=== PATIENT | male | born 1955 | race Caucasian/White ===

== ENCOUNTER → 2024-12-27 06:56 | Outpatient (REF) | payer OTHER, SELFPAY | LOC: RAD 06:56 | PROVIDERS: ATTENDING PHYSICIAN Surgery; FAMILY PHYSICIAN Internal Medicine | DX: K40.91 Unilateral inguinal hernia, without obstruction or gangrene, recurrent (principal) | CPT/HCPCS: 74177; Q9967 ==

== ENCOUNTER 2025-01-05 06:16 | Day surgery (SDC) | payer OTHER, SELFPAY ==
[2025-01-05] VITALS (7 sets, daily range): BP systolic 118–138; BP diastolic 76–88; BMI 25.1
[2025-01-05] MEDS: TYLENOL 1000 MG PO (08:29)
[2025-01-05] MEDS: NORMOSOL-R/PLASMALYTE-A 1000 IV (08:31)
--- NOTE | 2025-01-05 08:52 | W.SUR.PREOP ---
Pre-Operative Surgical Note
-
I have examined this patient prior to the performance of the scheduled procedure.
The patient's condition is unchanged from the time of the current History and
Physical and the patient is able to undergo the scheduled procedure.
--- NOTE | 2025-01-05 12:38 | W.IMMPOSTOP ---
Surgical Immed Post Op Note
-
Primary Surgeon: Moe Gtz MD
Assisting Surgeon: None
Pre-op Diagnosis: Recurrent right inguinal hernia
Post-op Diagnosis: Primary right inguinal hernia, incisional hernia
Procedure Performed:
1. Robotic right inguinal hernia repair with mesh.
2. Robotic incisional hernia repair with mesh.
3. Lysis of adhesions (60 minutes)
Anesthesia Type: General
Specimen / Cultures: None
Estimated Blood Loss: 11 cc
Complications: None
Operative Findings: After shaving the patient it was clear that he had a prior open left inguinal hernia repair but no incision was noted on the right. He did have a low transverse right lower quadrant incision consistent with a prior open
appendectomy. A Villalobos was placed preoperatively. Left upper quadrant Veress entry followed by standard three 8 mm ports transversely across the abdomen. No injury to the underlying viscera however there was some bleeding from the Veress site that
stopped with pressure. This was confirmed to be hemostatic at the end of the case though some bruising had developed. The patient had significant adhesions of colon and small bowel up to the anterior and the right lateral wall from his prior
appendectomy and in fact had an incisional hernia at this point containing part of the colon and surrounding fat. This was reduced. We then performed our standard YANCY inguinal hernia. The patient had a moderate-sized indirect inguinal defect
containing preperitoneal fat and bladder. The space was reinforced with an extra-large right Bard mid weight 3D max mesh that was secured in place at Ricardo's ligament and superior laterally to ensure overlap from his prior defect which measured
roughly 1.5 cm wide and half a centimeter long.
--- NOTE | 2025-01-05 12:56 | OR.RPT ---
Operative Report
Operative Report
Patient Name: Addy Reynolds
: 1955
Date of Operation: 01/05/2025
Pre-op Diagnosis: Recurrent right inguinal hernia
Post-op Diagnosis: Primary right inguinal hernia, incisional hernia
Procedure Performed:
1. Robotic right inguinal hernia repair with mesh.
2. Robotic incisional hernia repair with mesh.
3. Lysis of adhesions (60 minutes)
Surgeon(s):
Dr. Gtz
Doctor Of Naprapathy(s):
PRIYA Guerrero
Anesthesia: General
Estimated Blood Loss: 11 cc
Urine Output: None
Drains/Lines/Implants: XLarge 3D Max Bard mid weight uncoated polypropylene mesh
Specimens: None
Indication for surgery: The patient has a history of groin pain and noted on exam to have a right inguinal hernia. The patient reported a prior open right inguinal hernia repair with mesh so CT scan was performed which demonstrated bladder within
the contents of the hernia sac. The patient also reported a history of an open appendectomy. Following review of therapeutic options they have elected to undergo a minimally invasive repair of his hernia.
Operative Findings: After shaving the patient it was clear that he had a prior open left inguinal hernia repair but no incision was noted on the right. He did have a low transverse right lower quadrant incision consistent with a prior open
appendectomy. A Villalobos was placed preoperatively. Left upper quadrant Veress entry followed by standard three 8 mm ports transversely across the abdomen. No injury to the underlying viscera however there was some bleeding from the Veress site that
stopped with pressure. The patient had significant adhesions of colon and small bowel up to the anterior and the right lateral wall from his prior appendectomy and in fact had an incisional hernia at this point containing part of the colon and
surrounding fat. This was reduced. We then performed our standard YANCY inguinal hernia. The patient had a moderate-sized indirect inguinal defect containing preperitoneal fat and bladder. The space was reinforced with an extra-large right Bard
mid weight 3D max mesh that was secured in place at Ricardo's ligament and superior laterally to ensure overlap from his prior defect which measured roughly 1.5 cm wide and half a centimeter long.
Details of the operation:
The patient was brought to the Operating Room and placed in the supine position with the arms tucked. IV antibiotics were infused and Venodyne stockings placed. Following uneventful induction of general endotracheal anesthesia, an orogastric tube
as well as a Villalobos catheter were placed. The abdomen was prepped and draped in the usual sterile fashion. The abdomen was entered using a Veress technique which required 1 pass(es), pneumoperitoneum to 15 mmHg was obtained without difficulty. An
8mm trochar was passed through the abdominal wall roughly 20 cm cephalad to the inguinal canal. We then confirmed that no inadvertent injury was made while passing the trocar. There was however some bleeding from our Veress needle site which
stopped after holding pressure with a laparoscopic instrument inside as well as external pressure outside. We looked at this again at the end of the case to confirm that no ongoing bleeding had occurred. We then placed two additional 8 mm ports in
the left upper and right upper quadrants. We then docked the robot with a Prograsper in the left hand port and monopolar scissors in the right. There is a significant amount of fusions in the right lower quadrant and an indirect defect could be
readily identified. There is also scar tissue in the left lower quadrant. We then began by taking down the adhesions in the right lower quadrant. The colon and some of the small bowel was densely adherent in this area and was lysed/freed with
sharp and blunt dissection. We identified an incisional hernia containing part of the colon and surrounding fat which was reduced. This hernia measured roughly 2 cm wide and 00 0.5 cm long. Using part of the peritoneum that we had taken down we
continued our flap medially from the lateral ASIS to the medial umbilical fold. Medially we identified the midline pubis as well as Ricardo's ligament and ensured to dissect to centimeters below the pubic rim over the bladder. The bladder was
extending laterally into the defect, this was gently reduced. There was no true hernia sac into the defect, however the peritoneal lining was reflected posteriorly peeling it off of the spermatic cord and testicular vessels taking care to preserve
them. After exposure of the entire myopectineal orifice we identified and reduced: A small sized indirect inguinal hernia, no direct inguinal hernia, a small femoral hernia, and no cord lipoma
We then fixated an large 3D max mesh with a 2-0 Vicryl stitch at coopers medially and superior laterally. The flap was then closed with a running 2-0 barbed monocryl suture ensuring that the tail was cut flush with the medial fat pad so that no
barbs were exposed. During the closure of the flap an Angiocath was inserted and 20 cc of quarter percent Marcaine was instilled. The area in the flap cavity was then evacuated of air confirming that the mesh was flush and there were no folds. A
small rent in the peritoneum was noted and closed with 2-0 Vicryl. All needles and instruments were then removed and the robot was undocked. We confirmed once again that there was no bleeding at the Veress site however some bruising was noted. The
abdomen was then desufflated, and pneumoperitoneum evacuated. All skin sites were then closed with 4-0 Monocryl followed by Dermabond. Counts were correct and overall, the patient tolerated the procedure well and was taken to the Recovery Room
postoperatively in stable condition.
I was the attending physician and performed the procedure with assistance of the PA above. The assistance of PRIYA Guerrero was required due to the complexity of the procedure. During the procedure Breana assisted with port placement, instrument
and needle exchanges, and closure of the wound. I was present for all portions of the case, excluding skin closure.
Moe Gtz MD
== END 2025-01-05 13:50 | disposition home or self-care (01) ==
LOC: SDS 06:16
PROVIDERS: ATTENDING PHYSICIAN Surgery
DX: K40.91 Unilateral inguinal hernia, without obstruction or gangrene, recurrent (principal); K43.2 Incisional hernia without obstruction or gangrene; K66.0 Peritoneal adhesions (postprocedural) (postinfection)
CPT/HCPCS: 49651; 49591; C1781